=== PATIENT | female | born 1970 | race African-American/Black ===

== ENCOUNTER 2021-11-09 03:50 | Emergency (ER) | payer MEDICAID ==
[~2021-11-09] VITALS: Ht 167.6 cm; Wt 103.0 kg
[2021-11-09 04:02] VITALS: BP 166/90
--- NOTE | 2021-11-09 04:06 | NUR ---
TO LOBBY A/W BED AMBULATORY
--- NOTE | 2021-11-09 04:32 | NUR ---
PT AMBULATED TO BED NO 2
--- NOTE | 2021-11-09 04:35 | NUR ---
S/P SPLASHED A BODY LIQUID SOAP IN HER EYES BEFORE 12 MIDNIGHT, NOW WITH PAIN AND UNCOMFORTABLE,
[2021-11-09 04:45] VITALS: BP 166/90
--- NOTE | 2021-11-09 04:45 | NUR ---
Patient discharged with v/s stable. Written and verbal after care instructions given and explained. Patient verbalized understanding. Ambulatory with steady gait. All questions addressed prior to discharge. Advised to follow up with PMD.
== END 2021-11-09 04:45 | disposition home or self-care (01) ==
LOC: MED 03:50
DX: H53.412 Scotoma involving central area, left eye (principal); I10 Essential (primary) hypertension; Z98.890 Other specified postprocedural states
CPT/HCPCS: 99281

== ENCOUNTER 2023-06-29 12:47 | Emergency (ER) | payer MEDICAID ==
[~2023-06-29] VITALS: Ht 167.6 cm; Wt 111.1 kg
[2023-06-29 12:52] VITALS: BP 164/111; PULSE 66; RESP 17; TEMP 98.1; O2SAT 66
[2023-06-29] MEDS ORDERED: IBUP-2213 PO (13:27)
[2023-06-29] MEDS ORDERED: FLONAS NS (13:27)
[2023-06-29] MEDS ORDERED: PROM118S5 PO (13:27)
[2023-06-29 15:04] LABS: FLU A ANTIGEN negative (NEGATIVE); FLU B ANTIGEN NEGATIVE (NEGATIVE)
== END 2023-06-29 13:34 | disposition home or self-care (01) ==
LOC: MED 12:47
DX: B34.9 Viral infection, unspecified (principal); Z20.822 Contact with and (suspected) exposure to COVID-19; I10 Essential (primary) hypertension; Z79.899 Other long term (current) drug therapy
CPT/HCPCS: 87081; 99283

== ENCOUNTER 2023-08-06 13:03 | Emergency (ER) | payer MEDICAID ==
[~2023-08-06] VITALS: Ht 167.6 cm; Wt 110.4 kg
[~2023-08-06 13:03] MED LIST: FLONAS NS; IBUP-2213 PO; PROM118S5 PO
[2023-08-06 13:09] VITALS: BP 107/65; PULSE 73; RESP 17; TEMP 98; O2SAT 97
[2023-08-06] MEDS: KETOROLAC 30 MG/ML VIAL IM ONE (15:12)
[2023-08-06] MEDS ORDERED: NAPR-1704 PO (16:09)
[2023-08-06] MEDS ORDERED: LID5T TP (16:09)
[2023-08-06] MEDS: DEXAMETHASONE 10 MG/ML VIAL IM ONE (16:19)
[2023-08-06 16:22] VITALS: BP 112/62; PULSE 77; RESP 16; TEMP 98; O2SAT 99
== END 2023-08-06 16:22 | disposition home or self-care (01) ==
LOC: MED 13:03
DX: M79.644 Pain in right finger(s) (principal); I10 Essential (primary) hypertension; Z79.1 Long term (current) use of non-steroidal anti-inflammatories (NSAID); Z79.899 Other long term (current) drug therapy
CPT/HCPCS: 73130; 96372; 99284; J1100; J1885